=== PATIENT | male | born 1950 | race Caucasian/White ===

== ENCOUNTER → 2017-10-14 | Outpatient (CLI) | payer OTHER | END | disposition home or self-care (01) | LOC: LAB 08:40 → LAB SHORT 08:40 | DX: L08.9 Local infection of the skin and subcutaneous tissue, unspecified (principal) | CPT/HCPCS: 87070; 87077; 87147; 87186; 87205 ==

== ENCOUNTER 2021-12-31 11:15 | Day surgery (SDC) | payer OTHER, MEDICARE ==
[~2021-12-31] VITALS: Ht 175.3 cm; Wt 96.9 kg
[2021-12-31] MEDS ORDERED: LISI20 PO (11:42)
[2021-12-31] MEDS ORDERED: IBUP200 PO (11:43)
--- NOTE | 2021-12-31 18:14 | NUR ---
PT DISCHARGED HOME w/. PT AND VERBALIZE UNDERSTANDING OF DC INSTRUCTIONS INCLUDING SURGICAL SITE CARE, COMPLICATIONS, PAIN CONTROL, AND FOLLOW UP APPT. NO ACUTE CHANGES AT END OF MY STEP DOWN CARE.
--- NOTE | 2022-01-01 07:47 | NUR ---
01/01/22 0747 Funmilayo Christopher VERIFICATIONS: EDIT CHART.
== END 2021-12-31 23:24 | disposition home or self-care (01) ==
LOC: ORSCMMR 11:15 → ORD 11:15 → ORSCMMR 11:22 → ORD 23:24
PROVIDERS: Orthopaedic Surgery
PROC: 0PSJ04Z Reposition Left Radius with Internal Fixation Device, Open Approach (ICD-10-PCS; principal; 2021-12-31 13:30)
DX: S52.572A Other intraarticular fracture of lower end of left radius, initial encounter for closed fracture (principal); X58.XXXA Exposure to other specified factors, initial encounter; Y92.828 Other wilderness area as the place of occurrence of the external cause; Y99.0 Civilian activity done for income or pay; I10 Essential (primary) hypertension
CPT/HCPCS: A9270; C1713; J0690; J1100; J1885; J2370; J2405; J2704; J2710; J2795; J3010; J7120